=== PATIENT | male | born 1940 | race African-American/Black ===

== ENCOUNTER 2024-07-28 11:39 | Emergency (ER) | payer OTHER, SELFPAY ==
[2024-07-28] VITALS (7 sets, daily range): BP systolic 131–149; BP diastolic 64–99; PULSE 94–108; RESP 18–28; TEMP 36.3–36.8; O2SAT 92–100; BMI 23.2
--- NOTE | 2024-07-28 13:43 | EDS_ITS ---
HPI History of Present Illness Chief Complaint: Weakness Narrative Narrative: Chief complaint and HPI: Weakness and cough. 83-year-old male developed fevers, chills, general malaise, general weakness, cough on Monday. He states that the symptoms did not improve in which he took a COVID test yesterday. He states it was positive. Patient states he has been eating and drinking but endorses a decreased appetite. He states that he has general malaise and has laid on the couch all day. He denies any chest pain, abdominal pain, nausea, vomiting, diarrhea. Patient states his symptoms have not improved which is why he comes for further evaluation. Review of systems: See HPI Medications: As listed on the chart Allergies: As listed on the chart PFSH: Per chart Vital signs: As listed on the chart. Reviewed. Physical exam: Gen: A&O x3, NAD Head: Normocephalic, atraumatic Eyes: No sclera icterus, conjunctiva clear ENT: Moist mucous membranes Neck: Trachea midline, No JVD CV: Tachycardic, regular rhythm, no murmurs, no peripheral edema Resp: Lungs CTA BL, no w/r/c GI: Abd soft, non-distended, non-tender, no r/r/g Musc: Full ROM, no deformity, patient was able to ambulate in the room without any difficulty Skin: Warm, dry Neuro: Alert, oriented, grossly intact, sensation intact Psych: Cooperative, appropriate mood and affect [facility] Home Medications ?Medication ?Instructions ?Recorded ?Last Taken ?Type doxycycline hyclate 100 mg capsule 100 mg PO BID 7 days #14 caps 07/28/24 Unknown Rx Allergy/AdvReac Type Severity Reaction Status Date / Time No Known Allergies Allergy Verified 07/28/24 11:42 Social History Smoking Status: Never smoker EXAM Physical Exam Const Vital Signs: 07/28/24 11:40 07/28/24 11:42 07/28/24 12:10 Temperature 98.3 F 98.3 F Temperature Source Temporal Oral Pulse Rate 108 H 108 H Respiratory Rate 22 H 22 H Respiratory Effort Normal Non-Labored Respiratory Pattern Normal Blood Pressure 131/93 H 131/93 H Blood Pressure Mean 105 105 Pulse Ox 93 93 Oxygen Delivery Method Room Air Room Air 07/28/24 12:42 07/28/24 15:00 07/28/24 16:00 Temperature 98.3 F 97.4 F L 97.9 F Temperature Source Oral Temporal Temporal Pulse Rate 103 H 100 94 Respiratory Rate 18 20 H 28 H Respiratory Effort Respiratory Pattern Blood Pressure 146/99 H 149/64 H 134/71 H Blood Pressure Mean 114 92 92 Pulse Ox 93 100 100 Oxygen Delivery Method Room Air Room Air 07/28/24 16:53 Temperature 97.9 F Temperature Source Pulse Rate 94 Respiratory Rate 28 H Respiratory Effort Respiratory Pattern Blood Pressure 134/71 H Blood Pressure Mean 92 Pulse Ox 100 Oxygen Delivery Method MDM MDM MDM Narrative Medical decision making narrative: 83-year-old male with no significant past medical history presents for evaluation of flu type symptoms and generalized weakness. He states he had a COVID-positive test yesterday. On presentation patient is afebrile, mildly tachycardic, and no hypoxia on room air. Patient endorses generalized weakness but ambulated in the room without any difficulty. He has good strength on physical exam. Patient was ambulated in our emergency department without hypo lester as well. Differential diagnosis includes but is not limited to COVID-19 infection, influenza, pneumonia, electrolyte abnormality. Suspect less likely PE or DVT however with positive COVID-19 infection cannot rule out PE. 500 cc NS bolus ordered. Respiratory/cardiac workup ordered. EKG and chest x-ray reviewed see below. CBC without leukocytosis or anemia. CMP without SHERWIN, transaminitis. Troponin negative. D-dimer elevated at 3.21. CTA chest ordered to assess for PE. CTA chest without PE. However patient does have bilateral pneumonia. COVID, flu, RSV negative here. On reexamination, patient is no longer tachycardic. No hypoxia on room air. Patient again was ambulated without hypoxia. Patient and were updated of all the results and the findings of pneumonia. Patient has no leukocytosis or hypoxia therefore patient will be discharged home on antibiotics for suspected community-acquired pneumonia. Patient is comfortable with this plan and agrees. Patient was educ ated that needs to return back to the ED if his symptoms change or worsen. He confirmed understanding. Patient will be placed on a 7-day course of doxycycline. EKG: Interpreted by me/EM physician: EKG shows sinus tachycardia with a heart rate of 103. Right bundle branch block. No ST elevation. I do not have a previous EKG to compare to. Diagnostic: Interpreted by me/EM physician: Chest x-ray with atelectasis in the left lung base concerning for pneumonia versus effusion Impression: 1. Pneumonia, suspect community-acquired 2. Positive COVID-19 test at home, but negative on our testing Lab Data Labs: Laboratory Results - last 24 hr 07/28/24 13:52 WBC 9.0 RBC 5.43 Hgb 15.3 Hct 47.6 MCV 87.7 MCH 28.2 MCHC 32.1 RDW Std Deviation 48.7 H RDW Coeff of Kory 15.1 H Plt Count 153 MPV 12.2 H Immature Gran % (Auto) 0.200 Neut % (Auto) 96.3 H Lymph % (Auto) 2.2 L Angelina % (Auto) 1.2 Eos % (Auto) 0.0 Baso % (Auto) 0.1 Absolute Neuts (auto) 8.7 H Absolute Lymphs (auto) 0.20 L Nucleated RBC % 0 Differential Comment SEE COMMENT Platelet Estimate ADEQUATE RBC Morphology NORM C+C Anisocytosis RARE D-Dimer Quant (PE/DVT) 3.21 H* Sodium 140 Potassium 3.9 Chloride 107 Carbon Dioxide 24.0 Anion Gap 9 BUN 30 H Creatinine 1.01 Estim Creat Clear Calc 65.55 Est GFR (MDRD) Af Amer 91 Est GFR (MDRD) Non-Af 75 BUN/Creatinine Ratio 29.7 H Glucose 111 H Calcium 9.1 Total Bilirubin 1.10 H AST 32 ALT 19 Alkaline Phosphatase 73 Troponin I High Sens 37 Total Protein 6.6 Albumin 2.7 L Globulin 3.9 Albumin/Globulin Ratio 0.7 L Radiography Diagnostic Testing: Clinical Impression(s) from Imaging Studies Chest X-Ray 07/28/24 14:23 IMPRESSION: Left pleural effusion. Age indeterminate fracture of the left third lateral rib. Electronically Signed: Santo Pichardo MD at 14:38 EDT , Chest CTA 07/28/24 14:37 IMPRESSION: 1. No demonstrated pulmonary embolism or arterial dissection. 2. There is bilateral pneumonia. Electronically Signed: Santo Pichardo MD at 15:06 EDT , Discharge Plan Triage Chief Complaint: Weakness Other Complaint: Fever ED Provider: Maicol Sapp Dx/Rx/DC Orders Clinical Impression: Pneumonia Instructions: ED Pneumonia (Adult) Prescriptions: New doxycycline hyclate 100 mg capsule 100 mg PO BID 7 Days Qty: 14 0RF Primary Care Provider: [facility] Referrals: [facility] [Primary Care Provider] - 3-5 Days Activity Restrictions/Additional Instructions: Follow-up with your primary care physician. Return back to the ED if symptoms change or worsen. Print Language: Argentine Disposition Disposition: Home, Self Care Discharge Date/Time: 07/28/24 16:55
[2024-07-28] MEDS: 0.9% Normal Saline (500mL Bag) 500 ML 1000 ML IV (14:01)
[2024-07-28 14:23] LABS: ALB/GLOB Ratio 0.7 RATIO (0.9-2.4); AST(SGOT) 32 U/L (15-37); Alanine Aminotransfer ALT/SGPT 19 U/L (16-61); Albumin, Serum 2.7 g/dL (3.2-5.0); Alkaline Phosphatase 73 U/L (45-117); Anion Gap 9 (5-15); BUN 30 mg/dL (7-18); BUN/Creat Ratio 29.7 RATIO (10-20); Calcium,Total 9.1 mg/dL (8.5-10.1); Chloride 107 mmol/L (98-107); Creatinine, Serum 1.01 mg/dL (0.70-1.30); EST Glomerular Filtration Rate 75 mL/min (>60); Est Glom Filt Rate - Afr Amer 91 mL/min (>60); Estimated Creatinine Clearance 65.55 ml/min; Globulin 3.9 g/dL (2.2-4.2); Glucose 111 mg/dL (74-106); Potassium 3.9 mmol/L (3.5-5.1); Protein, Total 6.6 g/dL (6.4-8.2); Sodium Level 140 mmol/L (136-145); Troponin-I HS 37 pg/mL (3.0-78.0)
--- NOTE | 2024-07-28 14:23 | RAD_ITS ---
STUDY: XR Chest 2 Views 07/28/2024 2:23 PM REASON FOR EXAM: Male, 83 years old. SOB, COVID COMPARISON: None TECHNIQUE: XR Chest 2 Views FINDINGS: Left pleural effusion. Age indeterminate fracture of the left third lateral rib. Normal heart size. Normal mediastinum. Normal alexandra. Prominent appearing increased interstitial lung markings. Normal visualized pulmonary arteries. There is atherosclerotic calcification of the aortic arch with tortuosity. There are diffuse degenerative changes of the visualized thoracic spine. There is degenerative osteoarthritis of the bilateral shoulders. There are no acute findings of the upper abdomen. RAD/Chest PA and Lateral IMPRESSION: Left pleural effusion. Age indeterminate fracture of the left third lateral rib. Electronically Signed: Santo Pichardo MD at 14:38 EDT ,
[2024-07-28 14:35] LABS: D-Dimer Quantitative (DVT/PE) 3.21 FEU/ug/m (0.27-0.49)
--- NOTE | 2024-07-28 14:37 | CT_ITS ---
EXAM: CT ANGIOGRAPHY CHEST WITHOUT AND WITH INTRAVENOUS CONTRAST CLINICAL INDICATION: Elevated D-dimer, shortness of breath, COVID-19 TECHNIQUE: Helically acquired angiography images were obtained of the chest without and with intravenous contrast. This CT exam was performed using one or more of the following dose reduction techniques: automated exposure control, adjustment of the mA and/or kV according to patient size, and/or use of iterative reconstruction technique. MIP reconstructed images were created and reviewed. CONTRAST: IV 100mL Isovue-370 RADIATION DOSE: CTDIvol = 8.35 mGy, DLP = 482.33 mGy-cm COMPARISON: No relevant prior studies available. FINDINGS: PULMONARY ARTERIES: Unremarkable. No demonstrated pulmonary embolism or arterial dissection. AORTA: There is atherosclerotic calcification of the aortic arch with tortuosity and elongation of the aortic arch and descending thoracic aorta. Normal in caliber. No evidence of dissection. GREAT VESSELS OF AORTIC ARCH: Unremarkable. Normal in caliber. No evidence of dissection. LUNGS AND PLEURAL SPACES: There is bilateral pneumonia. Mild consolidative infiltrate in the medial right lower lobe. Diffuse consolidative infiltrate throughout the left lower lobe. No mass. No pleural effusion or thickening. HEART: There are calcifications of the coronary arteries. Heart size is normal. No pericardial effusion. MEDIASTINUM: Unremarkable. No mediastinal or hilar adenopathy. Esophagus is unremarkable. No hiatal hernia. THYROID: Unremarkable. No thyroid lesions. BONES/JOINTS: There are degenerative changes of the shoulders. There are multi-level degenerative changes of the thoracic spine. No suspicious lytic or blastic abnormality. SPLEEN: Calcified splenic granulomas. OTHER FINDINGS: Post-processing of the images was performed, with axial imaging and 3D reconstruction. MIPS images were obtained. CT/CTA Chest W/WO Contrast IMPRESSION: 1. No demonstrated pulmonary embolism or arterial dissection. 2. There is bilateral pneumonia. Electronically Signed: Santo Pichardo MD at 15:06 EDT ,
[2024-07-28 15:52] LABS: Absolute Neutrophil Count 8.7 X10^3/uL (2.0-7.7); Basophil# 0.01 X10^3/uL; Basophil% 0.1 % (0-1); Hematocrit 47.6 % (40-54); Hemoglobin 15.3 g/dL (13.0-16.5); Lymphocyte % 2.2 % (19-41); Mean Corp Hgb Conc 32.1 g/dL (32-36); Mean Corpuscular Hgb 28.2 pg (27.0-32.0); Mean Corpuscular Volume 87.7 fL (80-94); Mean Platelet Vol. 12.2 fl (6.2-12.0); Monocyte# 0.11 X10^3/uL; Monocyte% 1.2 % (0-10); NRBC Flagged by Analyzer 0 % (0-5); Neutrophil % 96.3 % (47-70); POSITIVE DIFFERENTIAL YES; POSITIVE MORPHOLOGY YES; Platelet Count 153 K/mm3 (150-450); RBC Distribution Width CV 15.1 % (11.6-14.6); RBC Distribution Width SD 48.7 fl (35.1-43.9); Red Blood Count 5.43 M/mm3 (4.6-6.2)
[2024-07-28 15:55] LABS: Differential Indicated SCAN CRITERIA MET
[2024-07-28 16:37] LABS: Anisocytosis RARE; Platelet Estimate ADEQUATE (ADEQ); Red Cell Morphology NORM C+C NORMAL (NORM C&C)
== END 2024-07-28 16:55 | disposition home or self-care (01) ==
PROVIDERS: Emergency Provider Surgery; Referring Provider Surgery; Visit Provider Surgery
DX: J18.9 Pneumonia, unspecified organism (principal)
CPT/HCPCS: 71046; 71275; 80053; 84484; 85025; 85379; 87631; 93005; 99283; J7040; Q9967; A4216

== ENCOUNTER 2025-05-25 04:48 | Emergency (ER) | payer OTHER, SELFPAY ==
[2025-05-25 04:49] VITALS: BP 132/79; PULSE 90; RESP 19; TEMP 38; O2SAT 96; BMI 23.2
[2025-05-25 04:53] VITALS: BP 132/79; PULSE 89; RESP 16; TEMP 38; O2SAT 96
[2025-05-25 05:10] VITALS: O2SAT 98
--- NOTE | 2025-05-25 05:12 | EX.ED.DYSGE1 ---
HPI History of Present Illness Chief Complaint: Dizziness Informant: patient Narrative Narrative: 84-year-old male presenting with dizziness and disequilibrium. States he feels like things are spinning in his head especially when he gets up out of bed or changes position. Symptoms are relatively brief and if he remains still they resolve within less than a minute. This been going on for about 2 weeks although has had this in the past. This past day, he has had a couple episodes of where he was off balance while walking causing him to stumble and fall. Once he fell onto his right hip. He states it did not hurt too bad afterwards and he is able to walk on it without difficulty. Now it is a little more sore than it was before but he can still walk on it without causing increase in pain. Denies any groin pain, it is just in the lateral right hip. States this morning he got up to go to the bathroom, he sat on the edge of the bed for little while because he felt like things were spinning and swimming, and then when things resolved he walked into the bathroom, he stumbled a little bit and bumped his arm on the wall, but the disequilibrium then improved. He states he has had vertigo in the past like this but not this bad and it has not lasted this long. He denies headache, vision change, unilateral numbness or weakness, chest discomfort, dyspnea, near-syncope or syncope, nausea, vomiting, diarrhea. He denies having any recent illness that he knows of. He denies any acute urinary symptoms. [facility] Medical History Diabetes Hypertension Hyperlipemia Home Medications ?Medication ?Instructions ?Recorded ?Last Taken ?Type amiodarone 200 mg tablet 200 mg PO DAILY 05/25/25 Unknown History aspirin 81 mg chewable tablet 1 tab PO DAILY 05/25/25 Unknown History cholecalciferol (vitamin D3) 25 25 mcg PO DAILY 05/25/25 Unknown History mcg (1,000 unit) capsule empagliflozin 25 mg tablet 25 mg PO DAILY 05/25/25 Unknown History magnesium oxide 420 mg tablet 420 mg PO DAILY 05/25/25 Unknown History meclizine 25 mg tablet 25 mg PO TID PRN dizziness #20 tabs 05/25/25 Unknown Rx metformin 1,000 mg tablet 1,000 mg PO BID 05/25/25 Unknown History metoprolol succinate 50 mg 50 mg PO DAILY 05/25/25 Unknown History tablet,extended release 24 hr rosuvastatin 20 mg tablet (Crestor) 20 mg PO DAILY 05/25/25 Unknown History sacubitril 97 mg-valsartan 103 mg 1 tab PO BID 05/25/25 Unknown History tablet (Entresto) spironolactone 25 mg tablet 25 mg PO QDAY 05/25/25 Unknown History (Aldactone) Allergy/AdvReac Type Severity Reaction Status Date / Time No Known Allergies Allergy Verified 05/25/25 04:48 Social History Smoking Status: Never smoker ROS ROS ED Constitutional Constitutional ED: Denies chills or fever(s) Eyes Eyes: Denies blurry vision, change in vision or diplopia ENT ENT ED: Reports sore throat and vertigo; Denies ear pain, rhinorrhea or tinnitus Cardiovascular Cardiovascular: Denies chest pain, leg edema, palpitations or syncope Respiratory/Chest Respiratory/Chest: Denies cough or dyspnea Gastrointestinal Gastrointestinal: Denies abdominal pain, diarrhea, nausea or vomiting Genitourinary Genitourinary ED: Reports urinary frequency; Denies dysuria or hematuria Musculoskeletal Musculoskeletal: Reports other Details: right hip pain ; Denies back pain or neck pain Integumentary Denies abscess or rash Neurologic Neurologic: Reports as per HPI, abnormal gait, disequilibrium and dizziness; Denies headache(s), paresthesias or weakness Psychiatric Psychiatric: Denies anxiety or suicidal thoughts EXAM Physical Exam Const Vital Signs: 05/25/25 04:49 05/25/25 04:53 05/25/25 05:10 Temperature 100.4 F H 100.4 F H Temperature Source Oral Oral Pulse Rate 90 89 Respiratory Rate 19 H 16 Blood Pressure 132/79 H 132/79 H Blood Pressure Mean 96 96 Pulse Ox 96 96 98 Oxygen Delivery Method Room Air Room Air Room Air 05/25/25 05:53 Temperature 99.4 F H Temperature Source Oral Pulse Rate 81 Respiratory Rate 19 H Blood Pressure 110/61 Blood Pressure Mean 77 Pulse Ox 96 Oxygen Delivery Method Room Air Positive well nourished and well developed Constitutional Narrative: Well-appearing, conversive in 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 General Appearance ED: well developed and NAD HEENT Reports moist mucous membranes HEENT Narrative: Posterior oropharynx mildly erythematous. No exudates. No asymmetry. No trismus. No tonsillar edema. normocephalic and atraumatic Eyes PERRL and EOMs intact bilaterally Eyes Narrative: Oral no pathologic nystagmus. No direction change nystagmus. Negative skew test. Neck full ROM and supple Resp normal respiratory effort and clear to auscultation bilaterally Cardio regular rate, regular rhythm and no murmurs GI non-tender and non-distended Auscultation: normoactive bowel sounds Palpation: soft Back/Spine no CVA tenderness General Back: other FROM Extremity normal to inspection Extremity Narrative: Tenderness of the right greater trochanter, but painless full range of motion of the right hip without any pain or limitation. No deformity. No swelling. No other bony tenderness. General Extremety ED: Yes tenderness; Negative for edema or pulses abnormal General Extremity: Negative for edema or pulses abnormal Neuro oriented x3, CN's II-XII intact bilaterally and no sensory deficits noted Neuro Narrative: No dysmetria, normal [id number] and [id number] bilaterally. Normal speech no dysarthria normal peripheral and central neurologic exams NIHSS 0. Positive [place] to the right. Vertiginous symptoms very brief and not able to then perform jolt test due to resolution of vertiginous symptoms. Sensorium / Orientation: awake and alert Motor Exam: strength 5/5 throughout Psych mental status grossly normal Skin no rashes or lesions noted and no wounds Skin Narrative: Abrasion right ulnar proximal forearm no bony tenderness MDM MDM MDM Narrative Medical decision making narrative: On vital signs patient's temperature is 100.4. I asked him about this, he states he does not feel like he has a fever and this was surprising to him. For these reasons and his age is doing a septic workup although his exam is benign and the rest of his vital signs are normal. Given his age and recurrent disequilibrium also obtain a CT of the head. Patient's workup is unremarkable and his COVID test is positive which explains his fever and his lack of leukocytosis. Chest x-ray 2 views of my interpretation negative for pneumonia. CT head on my interpretation is unremarkable. After Tylenol and meclizine he is already feeling better. I do not think we need to wait for him to give a urinalysis at this time given this, and I am comfortable discharging him home given his pulse oximetry of 96%, normal vital signs except for low-grade temperature, he has had all of the recommended COVID vaccinations in the past, supportive care recommended at home for the first 5 days, and out with a mask for days 6 through 10 according to CDC recommendations. Lab Data Attestation: I reviewed the patient's lab results. Labs: Laboratory Results - last 24 hr 05/25/25 04:55 WBC 6.6 RBC 4.88 Hgb 14.1 Hct 43.1 MCV 88.3 MCH 28.9 MCHC 32.7 RDW Std Deviation 43.6 RDW Coeff of Kory 13.4 Plt Count 145 L MPV 11.2 Immature Gran % (Auto) 0.500 Neut % (Auto) 85.0 H Lymph % (Auto) 6.2 L Leslie % (Auto) 7.8 Eos % (Auto) 0.2 Baso % (Auto) 0.3 Absolute Neuts (auto) 5.7 Absolute Lymphs (auto) 0.41 L Nucleated RBC % 0 PT 13.7 INR 1.0 APTT 28.9 Sodium 138 Potassium 4.2 Chloride 102 Carbon Dioxide 22.0 Anion Gap 14 BUN 22 H Creatinine 1.06 Estim Creat Clear Calc 61.39 Est GFR (MDRD) Non-Af 70 BUN/Creatinine Ratio 20.6 H Glucose 139 H Lactic Acid 1.5 Calcium 9.3 Total Bilirubin 0.48 AST 22 ALT 13 Alkaline Phosphatase 80 Total Protein 7.1 Albumin 4.1 Globulin 3.0 Albumin/Globulin Ratio 1.3 Radiography Diagnostic Testing: Clinical Impression(s) from Imaging Studies Brain CT 05/25/25 05:25 IMPRESSION: No acute intracranial abnormalities. Reading Location: [facility] Chest X-Ray 05/25/25 05:46 IMPRESSION: No evidence for acute abnormality. Reading [facility] Hip/Pelvis X-Ray 05/25/25 05:46 IMPRESSION: No acute osseous abnormalities. Reading Location: [facility] Rhythm Strip Rhythm Strip: Sinus Rhythm Rate: 83 Ectopy: None EKG Initial EKG: Attestation: I personally reviewed and interpreted this EKG as follows: Interpretation: Sinus Rhythm, No Acute Injury Pattern, RBBB and LAFB Prior EKG tracings: available for review Prior: Unchanged Discharge Plan Triage Chief Complaint: Dizziness ED Provider: Stu Aguilar Dx/Rx/DC Orders Clinical Impression: Benign paroxysmal positional vertigo, COVID-19 virus infection, Dysequilibrium, Contusion of right hip Instructions: Coronavirus Disease 2019 (COVID-19): Caring for Yourself or Others, ED Vertigo, Unspecified Prescriptions: New meclizine 25 mg tablet 25 mg PO TID PRN (Reason: dizziness) Qty: 20 0RF No Action amiodarone 200 mg tablet 200 mg PO DAILY sacubitril-valsartan [Entresto] 97-103 mg tablet 1 tab PO BID rosuvastatin [Crestor] 20 mg tablet 20 mg PO DAILY metoprolol succinate 50 mg tablet extended release 24 hr 50 mg PO DAILY empagliflozin 25 mg tablet 25 mg PO DAILY metformin 1,000 mg tablet 1,000 mg PO BID spironolactone [Aldactone] 25 mg tablet 25 mg PO QDAY magnesium oxide 420 mg tablet 420 mg PO DAILY cholecalciferol (vitamin D3) 25 mcg (1,000 unit) capsule 25 mcg PO DAILY aspirin 81 mg tablet,chewable 1 tab PO DAILY [facility] Provider[facility] Referrals[facility] [Primary Care Provider] - 1 Week if not improving Activity Restrictions/Additional Instructions: Try to get a home portable pulse oximeter and closely watch your oxygen levels periodically. If you stay below 90% for more than a minute or so, and/or you are feeling like your breathing is getting worse, return to the emergency department for further evaluation. Currently, CDC recommendations state that you should stay home through day 5 of symptoms, then as long as symptoms are improving, if you need to go to work or somewhere else you may for days 6-10 as long as you are wearing a mask the entire time. If you are feeling better after day 10 you may resume life is normal. Print Language: Greenlandic Disposition Disposition: Home, Self Care
[2025-05-25 05:21] LABS: Hematocrit 43.1 % (40-54); Hemoglobin 14.1 g/dL (13.0-16.5); Immature Granulocytes Count 0.030 X10^3/uL (0.0-0.0); Mean Corp Hgb Conc 32.7 g/dL (32-36); Mean Corpuscular Volume 88.3 fL (80-94); Mean Platelet Vol. 11.2 fl (6.2-12.0); NRBC Flagged by Analyzer 0 % (0-5); POSITIVE DIFFERENTIAL YES; Platelet Count 145 K/mm3 (150-450); RBC Distribution Width CV 13.4 % (11.6-14.6); RBC Distribution Width SD 43.6 fl (35.1-43.9); Red Blood Count 4.88 M/mm3 (4.6-6.2); White Blood Count 6.6 K/mm3 (4.4-11.0)
--- OUTSIDE RECORDS SUMMARY | 2025-05-25 05:23 | XMS RPT_ITS | CCD ---
Author Organization [facility] ion [facility] Care Team Providers Care Senior Escrow Officer Name Role Phone [facility], [place] Primary Care Unavailable Maicol Sapp Referring Unavaildiamante e Maicol Sapp Attending Chavez harrison Problems Problem Classification Problem Date Documented Da te Episodic/Chronic Malaise and fatigue (1 source) Weakness; Translations: [Weakness] Onset: 08-18-2024 Episodic Results Test Name Value Interpretation Reference Range Facility CBC W/Diff, Automatedon 07-10 Anisocytosis Ql (Bld) RARE Normal [facility] Comment on above: Performed By: #### L 100.0100 #### [facility] [address] [place], [address] PLT EST ADEQUATE Normal ADEQ [facility] Comment on above: Performed By: #### L 100.0100 #### [facility] [address] [facility] [place], [address] RED CELL MORPH NORM C+C Normal NORM C C [facility] Comment on above: Performed By: #### L 100.0100 #### [facility] [address] [place], [address] SMEAR COMMENT SEE COMMENT Normal [facility] Comment on above: Result Comment: LYMP HOPENIA NOTED Performed By: #### L 100.0100 #### [facility] [address] [place], [address] CTA Chest W/WO Contraston CTA Chest W/WO Contrast [facility] Imaging Services [address] [place] [address] CTA Chest W/WO Contrast MR#: [id number] Acct: [id number] Name: PARIS HANNA Rep #: [id number] : 1940 M 83 From: Santo Bunch PCP: [facility] Status: REG ER Study: CTA Chest W/WO Contrast Date of Exam: 07/28/24 Exam# [id number] Ordering Dr: Maicol Sapp DO [id number] EXAM: CT ANGIOGRAPHY CHEST WITHOUT AND WITH INTRAVENOUS CONTRAST CLINICAL INDICATION: Elevated D-dimer, shortness of breath, COVID-19 TECHNIQUE: Helically acquired angiography images were obtained of the chest without and with intravenous contrast. This CT exam was performed using one or more of the following dose reduction techniques: automated exposure control, adjustment of the mA and/or kV according to patient size, and/or use of iterative reconstruction technique. MIP reconstructed images were created and reviewed. CONTRAST: IV 100mL Isovue-370 RADIATION DOSE: CTDIvol = 8.35 mGy, DLP = 482.33 mGy-cm COMPARISON: No relevant prior studies available. FINDINGS: PULMONARY ARTERIES: Unremarkable. No demonstrated pulmonary embolism or arterial dissection. AORTA: There is atherosclerotic calcification of the aortic arch with tortuosity and elongation of the aortic arch and descending thoracic aorta. Normal in caliber. No evidence of dissection. GREAT VESSELS OF AORTIC ARCH: Unremarkable. Normal in caliber. No evidence of dissection. LUNGS AND PLEURAL SPACES: There is bilateral pneumonia. Mild consolidative infiltrate in the medial right lower lobe. Diffuse consolidative infiltrate throughout the left lower lobe. No mass. No pleural effusion or thickening. HEART: There are calcifications of the coronary arteries. Heart size is normal. No pericardial effusion. MEDIASTINUM: Unremarkable. No mediastinal or hilar adenopathy. Esophagus is unremarkable. No hiatal hernia. THYROID: Unremarkable. No thyroid lesions. BONES/JOINTS: There are degenerative changes of the shoulders. There are multi-level degenerative changes of the thoracic spine. No suspicious lytic or blastic abnormality. SPLEEN: Calcified splenic granulomas. OTHER FINDINGS: Post-processing of the images was performed, with axial imaging and 3D reconstruction. MIPS images were obtained. CT/CTA Chest W/WO Contrast IMPRESSION: 1. No demonstrated pulmonary embolism or arterial dissection. 2. There is bilateral pneumonia. Electronically Signed: Santo Pichardo MD at 15:06 EDT , CC: Dr. Maicol Sapp DO; [facility] Customer Experience Consultant: Signed Normal [facility] Chest PA and Lateralon 07-28 Chest PA and Lateral [facility] Imaging Services [address] [place] [address] Chest PA and Lateral MR#: [id number] Acct: [id number] Name: PARIS HANNA Rep #: [id number] : 1940 M 83 From: Santo Bunch PCP: [facility] Status: REG ER Study: Chest PA and Lateral Date of Exam: 07/28/24 Exam# [id number] Ordering Dr: Maicol Sapp DO [id number] STUDY: XR Chest 2 Views 07/28/2024 2:23 PM REASON FOR EXAM: Male, 83 years old. SOB, COVID COMPARISON: None TECHNIQUE: XR Chest 2 Views FINDINGS: Left pleural effusion. Age indeterminate fracture of the left third lateral rib. Normal heart size. Normal mediastinum. Normal alexandra. Prominent appearing increased interstitial lung markings. Normal visualized pulmonary arteries. There is atherosclerotic calcification of the aortic arch with tortuosity. There are diffuse degenerative changes of the visualized thoracic spine. There is degenerative osteoarthritis of the bilateral shoulders. There are no acute findings of the upper abdomen. RAD/Chest PA and Lateral IMPRESSION: Left pleural effusion. Age indeterminate fracture of the left third lateral rib. Electronically Signed: Santo Pichardo MD at 14:38 EDT , CC: Dr. Maicol Sapp, DO; [facility] Customer Experience Consultant: Signed Normal [facility] Comprehensive Metabolic Prof ilon 07-28-2024 Albumin [Mass/Vol] 2.7 g/dL Low 3.2-5.0 [facility] Comment on above: Order Comment: 'TROP ' Serial specimen #1, #2 or #3: 1 1 Performed By: #### L 500.4050, L300.8000, L501.4020 #### [facility] [address] [place], [address] Albumin/Globulin [Mass ratio] 0.7 {ratio} Low 0.9-2.4 [facility] Comment on above: Order Comment: 'TROP ' Serial specimen #1, #2 or #3: 1 1 Performed By: #### L 500.4050, L300.8000, L501.4020 #### [facility] [address] [place], [address] ALK P 73 U/L Normal 45-117 [facility] Comment on above: Order Comment: 'TROP ' Serial specimen #1, #2 or #3: 1 1 Performed By: #### L 500.4050, L300.8000, L501.4020 #### [facility] [address] [place], [address] ALT [Catalytic activity/Vol] 19 U/L Normal 16-61 [facility] Comment on above: Order Comment: 'TROP ' Serial specimen #1, #2 or #3: 1 1 Performed By: #### L 500.4050, L300.8000, L501.4020 #### [facility] [address] [place], [address] AST [Catalytic activity/Vol] 32 U/L Normal 15-37 [facility] Comment on above: Order Comment: 'TROP ' Serial specimen #1, #2 or #3: 1 1 Performed By: #### L 500.4050, L300.8000, L501.4020 #### [facility] [address] [place], [address] Bilirubin [Mass/Vol] 1.10 mg/dL High 0.20-1.00 [facility] Comment on above: Order Comment: 'TROP ' Serial specimen #1, #2 or #3: 1 1 Result Comment: For patients on eltrombopag therapy, use of Dimension [place] TBIL is not recommended. Performed By: #### L 500.4050, L300.8000, L501.4020 #### [facility] [address] [place], [address] BUN/CRE 29.7 RATIO High 10-20 [facility] Comment on above: Order Comment: 'TROP ' Serial specimen #1, #2 or #3: 1 1 Performed By: #### L 500.4050, L300.8000, L501.4020 #### [facility] [address] [place], [address] CA,Total 9.1 mg/dL Normal 8.5-10.1 [facility] Comment on above: Order Comment: 'TROP ' Serial specimen #1, #2 or #3: 1 1 Performed By: #### L 500.4050, L300.8000, L501.4020 #### [facility] [address] [place], [address] Chloride [Moles/Vol] 107 mmol/L Normal 98-107 [facility] Comment on above: Order Comment: 'TROP ' Serial specimen #1, #2 or #3: 1 1 Performed By: #### L 500.4050, L300.8000, L501.4020 #### [facility] [address] [place], [address] CO2 [Moles/Vol] 24.0 mmol/L Normal 21.0-32.0 [facility] Comment on above: Order Comment: 'TROP ' Serial specimen #1, #2 or #3: 1 1 Performed By: #### L 500.4050, L300.8000, L501.4020 #### [facility] [address] [place], [address] Creatinine [Mass/Vol] 1.01 mg/dL Normal 0.70-1.30 [facility] Comment on above: Order Comment: 'TROP ' Serial specimen #1, #2 or #3: 1 1 Result Comment: The validity of the calculated GFR GFRAA in patients over 70 years has not been determined. Clinical correlation is essential. Performed By: #### L 500.4050, L300.8000, L501.4020 #### [facility] [address] [place], [address] ECRCL 65.55 ml/min Normal [facility] Comment on above: Order Comment: 'TROP ' Serial specimen #1, #2 or #3: 1 1 Performed By: #### L 500.4050, L300.8000, L501.4020 #### [facility] [address] [place], [address] EST GFR - AA 91 mL/min Normal >60 [facility] Comment on above: Order Comment: 'TROP ' Serial specimen #1, #2 or #3: 1 1 Result Comment: Afri can [place] GFR Calc Performed By: #### L 500.4050, L300.8000, L501.4020 #### [facility] [address] [place], [address] GAP 9 Normal 5-15 [facility] Comment on above: Order Comment: 'TROP ' Serial specimen #1, #2 or #3: 1 1 Performed By: #### L 500.4050, L300.8000, L501.4020 #### [facility] [address] [place], [address] GFR/1.73 sq M.predicted among non-blacks MDRD (S/P/Bld) [Vol rate/Area] 75 mL/min/{1.73_m2} Normal >60 [facility] Comment on above: Order Comment: 'TROP ' Serial specimen #1, #2 or #3: 1 1 Result Comment: Non- GFR Calc Performed By: #### L 500.4050, L300.8000, L501.4020 #### [facility] [address] [place], [address] Globulin (S) [Mass/Vol] 3.9 g/dL Normal 2.2-4.2 [facility] Comment on above: Order Comment: 'TROP ' Serial specimen #1, #2 or #3: 1 1 Performed By: #### L 500.4050, L300.8000, L501.4020 #### [facility] [address] [place], [address] Glucose [Mass/Vol] 111 mg/dL High 74-106 [facility] Comment on above: Order Comment: 'TROP ' Serial specimen #1, #2 or #3: 1 1 Result Comment: Fast ing Glucose result from 100 to 125 mg/dL suggests IMPAIRED HOMEOSTASIS per A.D.A. criteria. Performed By: #### L 500.4050, L300.8000, L501.4020 #### [facility] [address] [place], [address] Potassium [Moles/Vol] 3.9 mmol/L Normal 3.5-5.1 [facility] Comment on above: Order Comment: 'TROP ' Serial specimen #1, #2 or #3: 1 1 Performed By: #### L 500.4050, L300.8000, L501.4020 #### [facility] [address] [place], [address] Sodium [Moles/Vol] 140 mmol/L Normal 136-145 [facility] Comment on above: Order Comment: 'TROP ' Serial specimen #1, #2 or #3: 1 1 Performed By: #### L 500.4050, L300.8000, L501.4020 #### [facility] [address] [place], [address] T PROT 6.6 g/dL Normal 6.4-8.2 [facility] Comment on above: Order Comment: 'TROP ' Serial specimen #1, #2 or #3: 1 1 Performed By: #### L 500.4050, L300.8000, L501.4020 #### [facility] [address] [place], [address] Urea nitrogen [Mass/Vol] 30 mg/dL High 7-18 [facility] Comment on above: Order Comment: 'TROP ' Serial specimen #1, #2 or #3: 1 1 Performed By: #### L 500.4050, L300.8000, L501.4020 #### [facility] [address] [place], [address] D-Dimer Quantitative (DVT/PE )on 07-28-2024 D-DIMER QUANT 3.21 FEU/ug/m Invalid Interpretation Code 0.27-0.49 [facility] Comment on above: Result Comment: D-Di vignesh ELEVATED (>0.49): Additional studies and clinical assessments are indicated to conclude diagnosis of: Deep Vein Thrombosis (DVT) or Pulmonary Embolism (PE) CRITICAL VALUE CALLED TO [employer] 07/28/24 1434 Kalyani Lara. RESULTS READ BACK BY @YASMIN. Performed By: #### L 500.4050, L300.8000, L501.4020 #### [facility] [address] [place], [address] Emergency Department Summary on 07-28-2024 Emergency Department Summary [facility] Medical Records Department [address] [place] [address] Emergency Department Summary 07/28/24 MR#: [id number] Acct: [id number] Name: PARIS HANNA Kofi Rep #: [id number] : 1940 83 From: Maicol Sapp DO PCP: [facility] Status:DEP ER Location: ED HPI History of Present Illness Chief Complaint: Weakness Narrative Narrative: Chief complaint and HPI: Weakness and cough. 83-year-old male developed fevers, chills, general malaise, general weakness, cough on Monday. He states that the symptoms did not improve in which he took a COVID test yesterday. He states it was positive. Patient states he has been eating and drinking but endorses a decreased appetite. He states that he has general malaise and has laid on the couch all day. He denies any chest pain, abdominal pain, nausea, vomiting, diarrhea. Patient states his symptoms have not improved which is why he comes for further evaluation. Review of systems: See HPI Medications: As listed on the chart Allergies: As listed on the chart PFSH: Per chart Vital signs: As listed on the chart. Reviewed. Physical exam: Gen: A O x3, NAD Head: Normocephalic, atraumatic Eyes: No sclera icterus, conjunctiva clear ENT: Moist mucous membranes Neck: Trachea midline, No JVD CV: Tachycardic, regular rhythm, no murmurs, no peripheral edema Resp: Lungs CTA BL, no w/r/c GI: Abd soft, non-distended, non-tender, no r/r/g Musc: Full ROM, no deformity, patient was able to ambulate in the room without any difficulty Skin: Warm, dry Neuro: Alert, oriented, grossly intact, sensation intact Psych: Cooperative, appropriate mood and affect [facility] Home Medications ???Medication ???Instructions ???Recorded ???Last Taken ???Type doxycycline hyclate 100 mg capsule 100 mg PO BID 7 days #14 caps 07/28/24 Unknown Rx Allergy/AdvReac Type Severity Reaction Status Date / Time No Known Allergies Allergy Verified 07/28/24 11:42 Social History Smoking Status: Never smoker EXAM Physical Exam Const Vital Signs: 07/28/24 11:40 07/28/24 11:42 07/28/24 12:10 Temperature 98.3 F 98.3 F Temperature Source Temporal Oral Pulse Rate 108 H 108 H Respiratory Rate 22 H 22 H Respiratory Effort Normal Non-Labored Respiratory Pattern Normal Blood Pressure 131/93 H 131/93 H Blood Pressure Mean 105 105 Pulse Ox 93 93 Oxygen Delivery Method Room Air Room Air 07/28/24 12:42 07/28/24 15:00 07/28/24 16:00 Temperature 98.3 F 97.4 F L 97.9 F Temperature Source Oral Temporal Temporal Pulse Rate 103 H 100 94 Respiratory Rate 18 20 H 28 H Respiratory Effort Respiratory Pattern Blood Pressure 146/99 H 149/64 H 134/71 H Blood Pressure Mean 114 92 92 Pulse Ox 93 100 100 Oxygen Delivery Method Room Air Room Air 07/28/24 16:53 Temperature 97.9 F Temperature Source Pulse Rate 94 Respiratory Rate 28 H Respiratory Effort Respiratory Pattern Blood Pressure 134/71 H Blood Pressure Mean 92 Pulse Ox 100 Oxygen Delivery Method MDM MDM MDM Narrative Medical decision making narrative: 83-year-old male with no significant past medical history presents for evaluation of flu type symptoms and generalized weakness. He states he had a COVID-positive test yesterday. On presentation patient is afebrile, mildly tachycardic, and no hypoxia on room air. Patient endorses generalized weakness but ambulated in the room without any difficulty. He has good strength on physical exam. Patient was ambulated in our emergency department without hypoxia as well. Differential diagnosis includes but is not limited to COVID-19 infection, influenza, pneumonia, electrolyte abnormality. Suspect less likely PE or DVT however with positive COVID-19 infection cannot rule out PE. 500 cc NS bolus ordered. Respiratory/cardiac workup ordered. EKG and chest x- ray reviewed see below. CBC without leukocytosis or anemia. CMP without SHERWIN, transaminitis. Troponin negative. D-dimer elevated at 3.21. CTA chest ordered to assess for PE. CTA chest without PE. However patient does have bilateral pneumonia. COVID, flu, RSV negative here. On reexamination, patient is no longer tachycardic. No hypoxia on room air. Patient again was ambulated without hypoxia. Patient and were updated of all the results and the findings of pneumonia. Patient has no leukocytosis or hypoxia therefore patient will be discharged home on antibiotics for suspected community-acquired pneumonia. Patient is comfortable with this plan and agrees. Patient was educated that needs to return back to the ED if his symptoms change or worsen. He confirmed understanding. Patient will be placed on a 7-day course of doxycycline. EKG: Interpreted by me/EM physician: EKG shows sinus t (more content not included)... Normal [facility] L501.4020on 07-28-2024 TROPONIN-I HS 37 pg/mL Normal 3.0-78.0 [facility] Comment on above: Order Comment: 'TROP ' Serial specimen #1, #2 or #3: 1 1 Result Comment: Char prado Note: New Test Units and Gender Specific Reference Ranges. For more information see Policy Stat Procedure [place] High Sensitivity Troponin (TNIH) and attachments. Performed By: #### L 500.4050, L300.8000, L501.4020 #### [facility] [address] [place], [address] M100.678on 07-28-2024 M100.678 Pending SARS-CoV-2 (COVID 19) Negative INFLUENZA A Negative INFLUENZA B Negative RSV PCR Negative Normal [facility] Comment on above: Performed By: #### M 100.678 #### [facility] [address] [place], [address] Encounters Encounter Date Encounter Type Care Provider Facility Start: 07-28-2024 End: 07-28-2024 Emergency department patient visit [place] Hospital Facility:[facility] Payers Date Payer Category Payer Self-pay 2024 Unknown [id number] Unknown [id number] Summary Purpose Family History No Family History Records Found Advance Directives No Advanced Directives Records Found Additional Source Comments (unrecognized sect ion and content) No Status Records Found INFORMATION SOURCE (unrecogn ized section and content) DATE CREATED AUTHOR 08/19/2024 [facility] FOR RECORDS PERTAINING TO PATIENTS WHO ARE OR HAVE BEEN ENROLLED IN A CHEMICAL DEPENDENCY/SUBSTANCEABUSE PROGRAM, SOME INFORMATION MAY BE OMITTED. This clinical summary was aggregated from multiple sources. Caution should be exercised in using it in the provision of clinical care. This summary normalizes information from multiple sources, and as a consequence, information in this document may materially change the coding, format and clinical context of patient data. In addition, data may be omitted in some cases. CLINICAL DECISIONS SHOULD BE BASED ON THE PRIMARY CLINICAL RECORDS. [facility] [employer] [facility]. provides no warranty or guarantee of the accuracy or completeness of information in this document.
--- NOTE | 2025-05-25 05:25 | CT_ITS ---
PROCEDURE: BRAIN/HEAD WITHOUT CONTRAST 05/25/2025 REASON FOR EXAM: RECURRENT DYSEQUILIBRIUM TECHNIQUE: BRAIN/HEAD WITHOUT CONTRAST Coronal and Sagittal reconstruction series were provided. One or more dose reduction techniques were used (e.g., Automated exposure control, adjustment of the mA and/or kV according to patient size, use of iterative reconstruction technique. RADIATION DOSE SUMMARY: CTDlvol: 44.99 mGy DLP: 812.98 mGycm COMPARISON: None. FINDINGS: Brain: Extensive low density in the deep cerebral white matter most likely represents advanced chronic small vessel ischemic disease. No acute territorial infarction. No acute intracranial hemorrhage. No mass-effect or midline shift. CSF Spaces: Moderate generalized cerebral atrophy Sinuses/Mastoids: Clear. Bones: No acute bony abnormalities. CT/Brain/Head without Contrast IMPRESSION: No acute intracranial abnormalities. Reading Location: [facility]
[2025-05-25 05:32] LABS: Prothrombin Time (Protime)PT. 13.7 SECONDS (11.7-14.9)
[2025-05-25 05:33] LABS: Partial Thromboplast Time 28.9 Seconds (24.1-36.2)
[2025-05-25 05:43] LABS: AST(SGOT) 22 U/L (<=37); Alanine Aminotransfer ALT/SGPT 13 U/L (<=46); Albumin, Serum 4.1 g/dL (3.4-4.8); Alkaline Phosphatase 80 U/L (40-129); Anion Gap 14 (5-15); BUN 22 mg/dL (4-19); BUN/Creat Ratio 20.6 RATIO (10-20); Calcium,Total 9.3 mg/dL (7.6-11.0); Carbon Dioxide 22.0 mmol/L (21.0-32.0); Chloride 102 mmol/L (98-108); Estimated Creatinine Clearance 61.39 ml/min (50-250); Globulin 3.0 g/dL (2.2-4.2); Glucose 139 mg/dL (70-99); Potassium 4.2 mmol/L (3.3-5.1)
--- NOTE | 2025-05-25 05:46 | RAD_ITS ---
PROCEDURE: HIP, UNI W/ PELVIS 2-3 VIEWS 05/25/2025 REASON FOR EXAM: INJURY TECHNIQUE: HIP, UNI W/ PELVIS 2-3 VIEWS Laterality: Right COMPARISON: None FINDINGS: Bones: No acute bony abnormalities. Joints: Right hip joint periosteum sclerotic changes consistent with osteoarthritis. No dislocation. Soft tissues: Unremarkable RAD/HIP, UNI W/ Pelvis 2-3 Views IMPRESSION: No acute osseous abnormalities. Reading Location: [id number]
--- NOTE | 2025-05-25 05:46 | RAD_ITS ---
PROCEDURE: CHEST PA AND LATERAL 05/25/2025 REASON FOR EXAM: FEVER TECHNIQUE: CHEST PA AND LATERAL COMPARISON: CT scan of the chest on 07/28/2024. FINDINGS: The lungs are expanded. There is no demonstrated parenchymal abnormality. There is no demonstrated pleural abnormality. The cardiac silhouette is not enlarged. Normal mediastinum and alexandra. Normal visualized pulmonary arteries. Atheromatous plaques of the visualized aortic arch and descending thoracic aorta. Diffuse spondylosis of the visualized thoracic spine. Normal visualized ribs, clavicles. Degenerative joint disease. There is no demonstrated abnormality of the visualized soft tissue structures of the upper abdomen. RAD/Chest PA and Lateral IMPRESSION: No evidence for acute abnormality. Reading [facility]
[2025-05-25 05:53] VITALS: BP 110/61; PULSE 81; RESP 19; TEMP 37.4; O2SAT 96
[2025-05-25 06:32] VITALS: BP 121/63; PULSE 87; RESP 19; TEMP 37.2; O2SAT 97
== END 2025-05-25 06:49 | disposition home or self-care (01) ==
PROVIDERS: Emergency Provider Emergency Medicine; Visit Provider Emergency Medicine
DX: U07.1 COVID-19 (principal); E11.9 Type 2 diabetes mellitus without complications; S70.01XA Contusion of right hip, initial encounter; W01.0XXA Fall on same level from slipping, tripping and stumbling without subsequent striking against object, initial encounter; H81.10 Benign paroxysmal vertigo, unspecified ear; I10 Essential (primary) hypertension; E78.5 Hyperlipidemia, unspecified; Z79.82 Long term (current) use of aspirin; Z79.899 Other long term (current) drug therapy; Z79.84 Long term (current) use of oral hypoglycemic drugs
CPT/HCPCS: 70450; 71046; 73502; 80053; 83605; 85025; 85610; 85730; 87040; 87631; 93005; 99284; A4216